=== PATIENT | male | born 1980 | race African-American/Black ===

== ENCOUNTER 2016-07-17 11:11 | Inpatient (IN) | payer OTHER ==
[2016-07-17 12:07] VITALS: BMI 26.6
--- NOTE | 2016-07-17 13:50 | HP ---
COWS - Scale Resting Pulse: 0= [place] 80 or Below Sweatin= Chills/Flushing Restless Observation: 3= Extraneous Movement Pupil Size: 2= Moderately Dilated Bone or Joint Aches: 4=Acute Joint/Muscle Pain Runny Nose/ Eye Tearin= Nasal Congestion GI Upset > 30mins: 1= Stomach Cramp Tremor Observation: 2= Slight Tremor Visible Yawning Observation: 2= >3x During Session Anxiety or Irritability: 2=Irritable/Anxious Goose Flesh Skin: 0=Smooth Skin COWS Score: 18 Admission ROS BHS - HPI Chief Complaint: DETOX TX FOR HEROIN AND XANAX DEPENDENCE Allergies/Adverse Reactions: Allergies Allergy/AdvReac Type Severity Reaction Status Date / Time No Known Allergies Allergy Verified 07/17/16 12:57 History of Present Illness: 36 Y/O AA/MALE WITH A HX OF HEROIN,XANAX AND COCAINE DEPENDENCE SEEKING DETOX TX Exam Limitations: No Limitations - Ebola screening Have you traveled outside of the country in the last 21 days: No Have you had contact with anyone from an Ebola affected area: No Have you been sick,other than usual withdrawal symptoms: No Do you have a fever: No - Review of Systems Constitutional: Chills, Loss of Appetite, Night Sweats, Changes in sleep, Unintentional Wgt. Loss EENT: reports: Tearing, Nose Congestion Respiratory: reports: No Symptoms reported Cardiac: reports: Chest Pain (WHEN NOT USING DRUGS) GI: reports: Constipated, Diarrhea, Nausea, Poor Appetite : reports: No Symptoms Reported Musculoskeletal: reports: Muscle Pain Integumentary: reports: Bruising (IVD INJ SITE RIGHT ELBOW) Endocrine: reports: No Symptoms Reported Hematology: reports: No Symptoms Reported Psychiatric: reports: Orientated x3, Anxious Other Systems: Reviewed and Negative Patient History - Patient Medical History Hx Anemia: No Hx Asthma: No Hx Chronic Obstructive Pulmonary Disease (COPD): No Hx Cancer: No Hx Cardiac Disorders: No Hx Congestive Heart Failure: No Hx Hypertension: No Hx Hypercholesterolemia: No Hx Pacemaker: No HX Cerebrovascular Accident: No Hx Seizures: No Hx Dementia: No Hx Diabetes: No Hx Gastrointestinal Disorders: No Hx Liver Disease: No Hx Genitourinary Disorders: No Hx Sexually Transmitted Disorders: No Hx Renal Disease (ESRD): No Hx Thyroid Disease: No Hx Human Immunodeficiency Virus (HIV): No (NEGATIVE HX) Hx Hepatitis C: No Hx Depression: No Hx Suicide Attempt: No (DENIES) Hx Bipolar Disorder: No Hx Schizophrenia: No - Patient Surgical History Past Surgical History: No Hx Neurologic Surgery: No Hx Cataract Extraction: No Hx Cardiac Surgery: No Hx Lung Surgery: No Hx Breast Surgery: No Hx Breast Biopsy: No Hx Abdominal Surgery: No Hx Appendectomy: No Hx Cholecystectomy: No Hx Genitourinary Surgery: No Hx Orthopedic Surgery: No Anesthesia Reaction: No - PPD History Previous Implant?: Yes Documented Results: Negative w/o proof Implanted On Prior R Admission?: No PPD to be Administered?: Yes - Reproductive History Patient is a Female of Child Bearing Age (11 -55 yrs old): No (MALE) - Smoking Cessation Smoking history: Current some day smoker Have you smoked in the past 12 months: Yes Aproximately how many cigarettes per day: 4 Hx Chewing Tobacco Use: No Initiated information on smoking cessation: Yes 'Breaking Loose' booklet given: 07/17/16 - Substance & Tx. History Hx Alcohol Use: No (DENIES) Hx Substance Use: Yes (HEROIN/XANAX/COCAINE) Substance Use Type: Cocaine (EVERY OTHER DAY), Heroin, Tranquilizers Hx Substance Use Treatment: Yes ([facility]) - Substances Abused Heroin Route: Injection Frequency: Daily Amount used: 10 bags and up Age of first use: 19 Date of Last Use: 07/17/16 Alprazolam (Xanax) Route: Oral Frequency: Daily Amount used: 2mg and up Age of first use: 30 Date of Last Use: 07/16/16 Cocaine Route: Injection Frequency: 3-6 times per week (2-3 X /WK) Amount used: 1/2 DIME BAG Age of first use: 24 Date of Last Use: 07/06/16 Family Disease History - Family Disease History Family History: Denies Admission Physical Exam BHS - Vital Signs Vital Signs: Vital Signs - 24 hr 07/17/16 12:04 Temperature 98.3 F Pulse Rate 70 Respiratory 20 Rate Blood Pressure 97/61 - Physical General Appearance: Yes: Moderate Distress, Irritable, Anxious HEENTM: Yes: EOMI, Normocephalic, ULISES, Pharynx Normal Respiratory: Yes: Chest Non-Tender, Lungs Clear, Normal Breath Sounds, No Respiratory Distress Neck: Yes: No masses,lesions,Nodules, Supple, Trachea in good position Breast: Yes: Breast Exam Deferred Cardiology: Yes: Regular Rhythm, Regular Rate, S1, S2 Abdominal: Yes: Normal Bowel Sounds, Non Tender, Flat, Soft Genitourinary: Yes: Other (N/C) Musculoskeletal: Yes: full range of Motion, Gait Steady Extremities: Yes: Normal Range of Motion, Non-Tender 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, Fully Oriented, Alert, Motor Strength 5/5 Integumentary: Yes: Dry, Warm, Track Vu (RIGHT ELBOW) Lymphatic: Yes: Within Normal Limits - Diagnostic (1) Opioid dependence with withdrawal Current Visit: Yes Status: Acute (2) Sedative, hypnotic or anxiolytic dependence with withdrawal, uncomplicated Current Visit: Yes Status: Acute (3) Cocaine dependence, uncomplicated Current Visit: Yes Status: Acute Cleared for Admission [facility] - Detox or Rehab [facility] Level of Care: Medically Managed Detox Regimen/Protocol: Methadone/Valium [facility] Breath Alcohol Content Breath Alcohol Content: 0 Urine Drug Screen - Results Drug Screen Negative: No Urine Drug Screen Results: SHAGGY-Cocaine, OPI-Opiates, BZO-Benzodiazepines, OXY- Oxycodone
[2016-07-17] MEDS ORDERED: ACETAMINOPHEN 325 MG TABLET (FP) PO PRN (13:57)
[2016-07-17] MEDS ORDERED: MAG HYDROX/AL HYDROX/SIMETH 30 ML UNIT-DOSE CUP PO PRN (13:57)
[2016-07-17] MEDS ORDERED: MENTHOL/PHENOL 1 EACH UD MM PRN (13:57)
[2016-07-17] MEDS ORDERED: NICOTINE POLACRILEX 2 MG GUM BUC PRN (13:57)
[2016-07-17] MEDS ORDERED: guaiFENesin/D-METHORPHAN HB 10 ML UNIT-DOSE CUPS PO PRN (13:57)
[2016-07-17] MEDS ORDERED: LOPERAMIDE HCL 2 MG CAPSULE PO PRN (13:57)
[2016-07-17] MEDS ORDERED: P-EPHED 60MG/TRIPROLIDI 2.5MG TABLET PO PRN (13:57)
[2016-07-17] MEDS ORDERED: hydrOXYzine PAMOATE 25 MG CAPSULE (FP) PO PRN (13:57)
[2016-07-17] MEDS ORDERED: IBUPROFEN 400 MG TABLET (FP) PO PRN (13:57)
[2016-07-17] MEDS ORDERED: MAGNESIUM CITRATE 300 ML BOTTLE PO PRN (13:57)
[2016-07-17] MEDS ORDERED: MAGNESIUM HYDROX 2400MG/30ML ORAL SUSPENSION 30 ML CUP PO PRN (13:57)
[2016-07-17] MEDS ORDERED: METHADONE HCL 10 MG TABLET (FOR DETOX USE ONLY) PO ONE ×2 (14:22→23:00)
[2016-07-17] MEDS: NICOTINE 14 MG/24 HOURS TOPICAL PATCH TD SCH (15:41)
[2016-07-17] MEDS: diazePAM 5 MG TABLET PO PRN ×2 (15:48→22:44)
[2016-07-17 20:11] LABS: URINE APPEARANCE CLEAR; URINE BILIRUBIN NEGATIVE (NEGATIVE); URINE COLOR YELLOW; URINE GLUCOSE (UA) NEGATIVE (NEGATIVE); URINE KETONE TRACE (NEGATIVE); URINE LEUK ESTERASE NEGATIVE (NEGATIVE); URINE NITRITE NEGATIVE (NEGATIVE); URINE PROTEIN NEGATIVE (NEGATIVE); URINE UROBILINOGEN NEGATIVE E.U./dl (0.2-1.0)
[2016-07-17 21:18] LABS: URINE BLOOD 1+ (NEGATIVE)
[2016-07-17] MEDS: THIAMINE HCL 100 MG TABLET (FP) PO SCH (22:44)
[2016-07-17] MEDS: diphenhydrAMINE HCL 50 MG CAPSULE PO PRN (22:44)
[2016-07-17 22:53] LABS: URINE HYALINE CAST 4 /lpf; URINE MUCUS MANY; URINE RBC 1 /hpf (0-3); URINE WBC 4 /hpf (3-5)
[2016-07-17 23:31] LABS: HIV 1 & 2 AB NEGATIVE; HIV 1 AGp24 NEGATIVE
[2016-07-18] MEDS: diazePAM 5 MG TABLET PO PRN ×3 (06:19→22:34)
[2016-07-18] MEDS ORDERED: METHADONE HCL 10 MG TABLET (FOR DETOX USE ONLY) PO ONE (10:00)
[2016-07-18] MEDS: PRENATAL VITAMINS W/ FOLIC ACID TABLET (FP) PO SCH (10:08)
[2016-07-18] MEDS: NICOTINE 14 MG/24 HOURS TOPICAL PATCH TD SCH (10:08)
[2016-07-18 10:24] LABS: MCH 28.1 pg (25.7-33.7); MCHC 33.2 g/dl (32.0-35.9); MEAN CELL VOLUME 84.7 fl (80-96); MEAN PLT VOLUME 11.2 fl (7.5-11.1); PLATELET COUNT 138 K/MM3 (134-434); RDW 12.7 % (11.9-15.9); WHITE BLOOD COUNT 5.8 K/mm3 (4.0-10.0)
[2016-07-18 10:26] LABS: ALBUMIN 3.8 g/dl (3.4-5.0); ALK PHOS 71 U/L (45-117); ANION GAP 9 (8-16); BILIRUBIN,TOTAL 0.9 mg/dL (0.2-1.0); CO2 32 mmol/L (21-32); COCKROFT - GAULT 151.42; CREATININE 0.9 mg/dL (0.7-1.3); GLUCOSE,RANDOM 89 mg/dL (74-106); SGOT/AST 60 U/L (15-37); SGPT/ALT 33 U/L (12-78); TOT PROT 7.1 g/dl (6.4-8.2)
--- NOTE | 2016-07-18 11:04 | PN ---
BHS COWS - Scale Resting Pulse: 0= [place] 80 or Below Sweatin= Chills/Flushing Restless Observation: 3= Extraneous Movement Pupil Size: 2= Moderately Dilated Bone or Joint Aches: 4=Acute Joint/Muscle Pain Runny Nose/ Eye Tearin= Nasal Congestion GI Upset > 30mins: 1= Stomach Cramp Tremor Observation of Outstretched Hands: 2= Slight Tremor Visible Yawning Observation: 2= >3x During Session Anxiety or Irritability: 2=Irritable/Anxious Goose Flesh Skin: 0=Smooth Skin COWS Score: 18 BHS Progress Note (SOAP) Subjective: ANXIETY,SWEATS,IRRITABILITY,INTERMITTENT SLEEP. Objective: 07/18/16 11:03 Vital Signs Temperature 97.7 F 07/18/16 10:05 Pulse Rate 77 07/18/16 10:05 Respiratory Rate 18 07/18/16 10:05 Blood Pressure 113/69 07/18/16 10:05 O2 Sat by Pulse Oximetry (%) Laboratory Last Values WBC 5.8 K/mm3 (4.0-10.0) 07/18/16 06:00 RBC 4.57 M/mm3 (4.00-5.60) 07/18/16 06:00 Hgb 12.8 GM/dL (11.7-16.9) 07/18/16 06:00 Hct 38.6 % (35.4-49) 07/18/16 06:00 MCV 84.7 fl (80-96) 07/18/16 06:00 MCHC 33.2 g/dl (32.0-35.9) 07/18/16 06:00 RDW 12.7 % (11.9-15.9) 07/18/16 06:00 Plt Count 138 K/MM3 (134-434) 07/18/16 06:00 MPV 11.2 fl (7.5-11.1) H 07/18/16 06:00 Sodium 139 mmol/L (136-145) 07/18/16 06:00 Potassium 3.8 mmol/L (3.5-5.1) 07/18/16 06:00 Chloride 98 mmol/L (98-107) 07/18/16 06:00 Carbon Dioxide 32 mmol/L (21-32) 07/18/16 06:00 Anion Gap 9 (8-16) 07/18/16 06:00 BUN 8 mg/dL (7-18) 07/18/16 06:00 Creatinine 0.9 mg/dL (0.7-1.3) 07/18/16 06:00 Creat Clearance w eGFR > 60 (>60) 07/18/16 06:00 Random Glucose 89 mg/dL (74-106) 07/18/16 06:00 Calcium 9.0 mg/dL (8.5-10.1) 07/18/16 06:00 Total Bilirubin 0.9 mg/dL (0.2-1.0) 07/18/16 06:00 AST 60 U/L (15-37) H 07/18/16 06:00 ALT 33 U/L (12-78) 07/18/16 06:00 Alkaline Phosphatase 71 U/L (45-117) 07/18/16 06:00 Total Protein 7.1 g/dl (6.4-8.2) 07/18/16 06:00 Albumin 3.8 g/dl (3.4-5.0) 07/18/16 06:00 Urine Color Yellow 07/17/16 14:00 Urine Appearance Clear 07/17/16 14:00 Urine pH 5.0 (5.0-8.0) 07/17/16 14:00 Ur Specific [place] 1.023 (1.001-1.035) 07/17/16 14:00 Urine Protein Negative (NEGATIVE) 07/17/16 14:00 Urine Glucose (UA) Negative (NEGATIVE) 07/17/16 14:00 Urine Ketones Trace (NEGATIVE) H 07/17/16 14:00 Urine Blood 1+ (NEGATIVE) H 07/17/16 14:00 Urine Nitrite Negative (NEGATIVE) 07/17/16 14:00 Urine Bilirubin Negative (NEGATIVE) 07/17/16 14:00 Urine Urobilinogen Negative E.U./dl (0.2-1.0) 07/17/16 14:00 Ur Leukocyte Esterase Negative (NEGATIVE) 07/17/16 14:00 Urine RBC 1 /hpf (0-3) 07/17/16 14:00 Urine WBC 4 /hpf (3-5) 07/17/16 14:00 Hyaline Casts 4 /lpf 07/17/16 14:00 Urine Mucus Many 04/27/17 14:00 HIV 1&2 Antibody Screen Negative 07/17/16 14:00 HIV P24 Antigen Negative 07/17/16 14:00 Assessment: 07/18/16 11:04 WITHDRAWAL SX Plan: CONTINUE DETOX
[2016-07-18 12:46] LABS: SICKLE CELL SCREEN NEGATIVE (NEGATIVE)
--- NOTE | 2016-07-18 13:47 | EKG ---
Test Reason : Blood Pressure : / mmHG Vent. Rate : 052 BPM Atrial Rate : 052 BPM P-R Int : 162 ms QRS Dur : 094 ms QT Int : 406 ms P-R-T Axes : 055 059 037 degrees QTc Int : 377 ms SINUS BRADYCARDIA WITH SINUS ARRHYTHMIA NON-SPECIFIC INTRA-VENTRICULAR CONDUCTION DELAY NO PREVIOUS ECGS AVAILABLE Confirmed by BLACK CHAVES MD ([id number]) on 07/18/2016 1:47:10 PM Referred By: Confirmed By:BLACK CHAVES MD
[2016-07-18] MEDS: diphenhydrAMINE HCL 50 MG CAPSULE PO PRN (22:32)
[2016-07-18] MEDS: THIAMINE HCL 100 MG TABLET (FP) PO SCH (22:32)
[2016-07-19] MEDS ORDERED: METHADONE HCL 5 MG TABLET (FOR DETOX USE ONLY) PO ONE (10:00)
[2016-07-19] MEDS: NICOTINE 14 MG/24 HOURS TOPICAL PATCH TD SCH (10:40)
[2016-07-19] MEDS: diazePAM 5 MG TABLET PO PRN (10:40)
[2016-07-19] MEDS: PRENATAL VITAMINS W/ FOLIC ACID TABLET (FP) PO SCH (10:40)
--- NOTE | 2016-07-19 14:20 | PN ---
BHS COWS - Scale Resting Pulse: 0= [place] 80 or Below Sweatin= Chills/Flushing Restless Observation: 1= Difficult to Sit Still Pupil Size: 0= Normal to Room Light Bone or Joint Aches: 2= Severe Diffuse Aches Runny Nose/ Eye Tearin= Runny Nose/Eyes GI Upset > 30mins: 1= Stomach Cramp Tremor Observation of Outstretched Hands: 2= Slight Tremor Visible Yawning Observation: 1= 1-2x During Session Anxiety or Irritability: 2=Irritable/Anxious Goose Flesh Skin: 3=Piloerection COWS Score: 15 S Progress Note (SOAP) Subjective: Interrupted sleep, Body Aches, Sweating. Objective: PT. A & O X 3. 07/19/16 14:18 Vital Signs Temperature 97.0 F L 07/19/16 13:37 Pulse Rate 72 07/19/16 13:37 Respiratory Rate 18 07/19/16 13:37 Blood Pressure 107/69 07/19/16 13:37 O2 Sat by Pulse Oximetry (%) Laboratory Last Values WBC 5.8 K/mm3 (4.0-10.0) 07/18/16 06:00 RBC 4.57 M/mm3 (4.00-5.60) 07/18/16 06:00 Hgb 12.8 GM/dL (11.7-16.9) 07/18/16 06:00 Hct 38.6 % (35.4-49) 07/18/16 06:00 MCV 84.7 fl (80-96) 07/18/16 06:00 MCHC 33.2 g/dl (32.0-35.9) 07/18/16 06:00 RDW 12.7 % (11.9-15.9) 07/18/16 06:00 Plt Count 138 K/MM3 (134-434) 07/18/16 06:00 MPV 11.2 fl (7.5-11.1) H 07/18/16 06:00 Sickle Cell Screen Negative (NEGATIVE) 07/18/16 06:00 Sodium 139 mmol/L (136-145) 07/18/16 06:00 Potassium 3.8 mmol/L (3.5-5.1) 07/18/16 06:00 Chloride 98 mmol/L (98-107) 07/18/16 06:00 Carbon Dioxide 32 mmol/L (21-32) 07/18/16 06:00 Anion Gap 9 (8-16) 07/18/16 06:00 BUN 8 mg/dL (7-18) 07/18/16 06:00 Creatinine 0.9 mg/dL (0.7-1.3) 07/18/16 06:00 Creat Clearance w eGFR > 60 (>60) 07/18/16 06:00 Random Glucose 89 mg/dL (74-106) 07/18/16 06:00 Calcium 9.0 mg/dL (8.5-10.1) 07/18/16 06:00 Total Bilirubin 0.9 mg/dL (0.2-1.0) 07/18/16 06:00 AST 60 U/L (15-37) H 07/18/16 06:00 ALT 33 U/L (12-78) 07/18/16 06:00 Alkaline Phosphatase 71 U/L (45-117) 07/18/16 06:00 Total Protein 7.1 g/dl (6.4-8.2) 07/18/16 06:00 Albumin 3.8 g/dl (3.4-5.0) 07/18/16 06:00 Urine Color Yellow 07/17/16 14:00 Urine Appearance Clear 07/17/16 14:00 Urine pH 5.0 (5.0-8.0) 07/17/16 14:00 Ur Specific [place] 1.023 (1.001-1.035) 07/17/16 14:00 Urine Protein Negative (NEGATIVE) 07/17/16 14:00 Urine Glucose (UA) Negative (NEGATIVE) 07/17/16 14:00 Urine Ketones Trace (NEGATIVE) H 07/17/16 14:00 Urine Blood 1+ (NEGATIVE) H 07/17/16 14:00 Urine Nitrite Negative (NEGATIVE) 07/17/16 14:00 Urine Bilirubin Negative (NEGATIVE) 07/17/16 14:00 Urine Urobilinogen Negative E.U./dl (0.2-1.0) 07/17/16 14:00 Ur Leukocyte Esterase Negative (NEGATIVE) 07/17/16 14:00 Urine RBC 1 /hpf (0-3) 07/17/16 14:00 Urine WBC 4 /hpf (3-5) 07/17/16 14:00 Hyaline Casts 4 /lpf 07/17/16 14:00 Urine Mucus Many 07/17/16 14:00 RPR Titer Nonreactive (NONREACTIVE) 07/18/16 06:00 HIV 1&2 Antibody Screen Negative 07/17/16 14:00 HIV P24 Antigen Negative 07/17/16 14:00 LABS NOTED. Assessment: 07/19/16 14:19 WITHDRAWAL SYMPTOMS. Plan: CONTINUE DETOX. ADVISED PATIENT TO FOLLOW-UP WITH [facility] / REHAB MEDICAL PROVIDER AFTER DISCHARGE FROM DETOX FOR GENERAL MEDICAL ASSESSMENT AND FOR ABNORMAL ADMISSION LAB VALUES.
[2016-07-19 17:34] VITALS: BP 100/58; PULSE 52; TEMP 98.7
--- NOTE | 2016-07-19 18:56 | PN ---
S Progress Note Note: patient did not want to complete treatment,signed release ama,did not want to wait
--- NOTE | 2016-07-19 19:00 | DS ---
[facility] Detox Discharge Summary Admission Date: 07/17/16 Discharge Date: 07/19/16 - History Present History: Cocaine Dependence, Opioid Dependence, Sedative Dependence Additional Comments: patient did not want to complete treatment,signed release ama,did not want to wait - Physical Exam Results Vital Signs: Vital Signs Temperature 98.7 F 07/19/16 17:34 Pulse Rate 52 L 07/19/16 17:34 Respiratory Rate 18 07/19/16 17:34 Blood Pressure 100/58 07/19/16 17:34 O2 Sat by Pulse Oximetry (%) Pertinent Admission Physical Exam Findings: withdrawal symptom - Medication Discharge Medications: Ambulatory Orders NK [No Known Home Medication] 06/13/16 - Diagnosis (1) Cocaine dependence, uncomplicated Current Visit: Yes Status: Acute (2) Opioid dependence with withdrawal Current Visit: Yes Status: Acute (3) Sedative, hypnotic or anxiolytic dependence with withdrawal, uncomplicated Current Visit: Yes Status: Acute - AMA Did Patient Leave Against Medical Advice: Yes
[2016-07-20] MEDS ORDERED: METHADONE HCL 5 MG TABLET (FOR DETOX USE ONLY) PO ONE (10:00)
[2016-07-21] MEDS ORDERED: METHADONE HCL 10 MG TABLET (FOR DETOX USE ONLY) PO ONE (10:00)
[2016-07-22] MEDS ORDERED: METHADONE HCL 5 MG TABLET (FOR DETOX USE ONLY) PO ONE (06:00)
== END 2016-07-19 19:01 | disposition left against medical advice (07) | DRG 770 ==
LOC: YASAS 11:11 → Y3N 13:25
PROVIDERS: ADMIT Internal Medicine; ATTEND Internal Medicine
PROC: HZ2ZZZZ Detoxification Services for Substance Abuse Treatment (ICD-10-PCS; principal; 2016-07-19)
DX: F11.23 Opioid dependence with withdrawal (principal); F13.230 Sedative, hypnotic or anxiolytic dependence with withdrawal, uncomplicated; F14.20 Cocaine dependence, uncomplicated; F17.210 Nicotine dependence, cigarettes, uncomplicated
CPT/HCPCS: 36415; 80053; 81003; 81015; 85027; 85660; 86593; 87389; 93005; 93010